=== PATIENT | male | born 1970 | race Caucasian/White ===

== ENCOUNTER 2022-06-14 07:49 | Outpatient (CLI) | payer OTHER, SELFPAY | END 2022-06-14 07:50 | disposition home or self-care (01) | LOC: NFLDREF 06-16 06:51 | PROVIDERS: Visit Provider Internal Medicine | DX: Z00.00 Encounter for general adult medical examination without abnormal findings (principal); E78.5 Hyperlipidemia, unspecified; Z13.6 Encounter for screening for cardiovascular disorders; Z12.5 Encounter for screening for malignant neoplasm of prostate | CPT/HCPCS: 80053; 80061; 82306; 84153 ==

== ENCOUNTER 2023-06-27 08:09 | Outpatient (CLI) | payer OTHER, SELFPAY | END 2023-06-27 08:10 | disposition home or self-care (01) | LOC: NFLDREF 06-30 06:59 | PROVIDERS: PCP Internal Medicine; Referring Provider Internal Medicine; Visit Provider Internal Medicine | DX: E78.5 Hyperlipidemia, unspecified (principal); Z13.228 Encounter for screening for other metabolic disorders; Z12.5 Encounter for screening for malignant neoplasm of prostate | CPT/HCPCS: 80053; 80061; G0103 ==

== ENCOUNTER 2024-12-29 15:09 | Outpatient (CLI) | payer BC, SELFPAY | END 2024-12-29 15:10 | disposition home or self-care (01) | LOC: NFLDREF 15:10 | PROVIDERS: PCP Internal Medicine; Visit Provider Internal Medicine | DX: E78.5 Hyperlipidemia, unspecified (principal) | CPT/HCPCS: 80053; 80061; 82306; G0103 ==